=== PATIENT | male | born 2000 | race Caucasian/White ===

== ENCOUNTER 2024-09-04 18:25 | Emergency (ER) | payer SELFPAY ==
[~2024-09-04] VITALS: Ht 175.3 cm; Wt 66.2 kg
[2024-09-04] MEDS ORDERED: Orphenadrine 60 MG/2ML AMP IV ONE ×2 (18:45→21:15)
[2024-09-04] MEDS ORDERED: XANAX0.25 M1 PO (19:14)
[2024-09-04] MEDS ORDERED: SUMATRIPTAN SUC25 M2 PO (19:14)
[2024-09-04 20:11] LABS: BASO # 0.03 K/mm3 (0.02-0.10); EOS # 0.03 K/mm3 (0.04-0.40); EOS % 0.3 % (0.0-4.0); HEMATOCRIT 51.5 % (42.0-52.0); HEMOGLOBIN 18.1 g/dL (13.5-18.0); LYMPH# 1.49 K/mm3 (1.50-4.00); MEAN CELL VOLUME 87 fl (78-100); MEAN CORPUSCULAR HEMOGLOBIN 30 pg (27-31); MEAN CORPUSCULAR HGB CONC 35 g/dL (33-37); MONO # 0.73 K/mm3 (0.20-0.80); NEU # 6.98 K/mm3 (1.40-6.50); PLATELET COUNT 195 K/mm3 (130-400); RED BLOOD COUNT 5.95 M/mm3 (4.20-5.60); RED CELL DISTRIBUTION WIDTH 12.3 % (11.5-14.5); WHITE BLOOD COUNT 9.3 K/mm3 (4.8-10.8)
[2024-09-04 20:14] LABS: ALBUMIN 4.3 g/dL (3.5-5.0)
[2024-09-04 20:16] LABS: CALCIUM 8.8 mg/dL (8.3-10.5)
[2024-09-04 20:17] LABS: TOTAL PROTEIN 6.6 g/dL (6.4-8.3)
[2024-09-04 20:19] LABS: TOTAL BILIRUBIN 0.7 mg/dL (0.2-1.2)
[2024-09-04] MEDS ORDERED: Tdap Vaccine 0.5 ML SYRINGE IM ONE (20:30)
[2024-09-04] MEDS ORDERED: Iohexol 300 - 100 ML VIAL IV ONE (21:00)
[2024-09-04] MEDS ORDERED: Ondansetron 4 MG/2 ML VIAL IV ONE (21:45)
[2024-09-04 23:17] VITALS: BP 107/66
== END 2024-09-04 23:17 ==
LOC: ED 18:25
PROVIDERS: Family Medicine
DX: S27.0XXA Traumatic pneumothorax, initial encounter (principal); S27.321A Contusion of lung, unilateral, initial encounter; S60.512A Abrasion of left hand, initial encounter; R55 Syncope and collapse; F10.90 Alcohol use, unspecified, uncomplicated; F17.290 Nicotine dependence, other tobacco product, uncomplicated; V47.5XXA Car driver injured in collision with fixed or stationary object in traffic accident, initial encounter; Y92.410 Unspecified street and highway as the place of occurrence of the external cause
CPT/HCPCS: 90715; J2360; J2405; Q9967